=== PATIENT | female | born 1990 | race Caucasian/White ===

== ENCOUNTER → 2017-07-02 | Outpatient (CLI) | payer BC ==
[~2017-07-02] MED LIST: ASPIRIN325 MG PO; PERCOCET 5-3251 EACH PO; TYLENOL325 MG PO
== END | disposition disaster alternative care site (69) ==
LOC: GLAB 07:53
DX: O99.810 Abnormal glucose complicating pregnancy (principal); Z36 Encounter for antenatal screening of mother